=== PATIENT | male | born 1975 | race Hispanic/Latino ===

== ENCOUNTER 2020-10-23 16:13 | Emergency (ER) | payer SELFPAY ==
[2020-10-23 16:32] LABS: BASOPHILS % (AUTO) 0.5 % (0.0-5.0); EOSINOPHILS % (AUTO) 1.9 % (0.0-8.0); HEMATOCRIT 47.7 % (42-54); LYMPHOCYTES % (AUTO) 13.5 % (21.0-51.0); MEAN CORPUSCULAR HGB CONC 35.4 g/dL (32.0-36.0); MEAN CORPUSCULAR VOLUME 87.4 fL (79-99); MONOCYTES % (AUTO) 4.5 % (3.0-13.0); PLATELET COUNT (AUTO) 166 K/uL (130-400); RED BLOOD CELL COUNT(AUTO) 5.46 MIL/uL (4.50-6.20); RED CELL DISTRIBUTION WIDTH 13.3 % (11.0-15.5); WHITE BLOOD COUNT (AUTO) 8.7 K/uL (4.8-10.8)
[2020-10-23 16:48] LABS: APPEARANCE,URINE Clear (CLEAR); BILIRUBIN,URINE Negative (NEGATIVE); COLOR,URINE Yellow (YELLOW); GLUCOSE, URINE (UA) Negative (NEGATIVE); KETONES,URINE Trace mg/dL (NEGATIVE); LEUKOCYTE ESTERASE ,URINE Negative (NEGATIVE); NITRATE,URINE Negative (NEGATIVE); OCCULT BLOOD,URINE Negative (NEGATIVE); PH,URINE 7.5 (5.0-8.0); PROTEIN,URINE Negative (NEGATIVE)
[2020-10-23 16:49] LABS: ALBUMIN 3.1 g/dL (3.5-5.0); BILIRUBIN,TOTAL 0.4 mg/dL (0.2-1.0); POTASSIUM 3.9 mmol/L (3.5-5.1)
[2020-10-23] MEDS ORDERED: LORAZEPAM 2 MG/ML 1 ML VIAL ONE (16:55)
[2020-10-23] MEDS ORDERED: FAMOTIDINE 20MG VIAL IV ONE (16:55)
[2020-10-23] MEDS ORDERED: MAGNESIUM HYDROXIDE 30 ML/UDCUP ONE (16:56)
[2020-10-23] MEDS ORDERED: LIDOCAINE HCL 2% VISCOUS 15 ML UDCUP ONE (16:56)
== END 2020-10-23 18:14 | disposition home or self-care (01) ==
LOC: EDH 16:13
DX: K29.70 Gastritis, unspecified, without bleeding (principal); K80.20 Calculus of gallbladder without cholecystitis without obstruction
CPT/HCPCS: 36415; 76705; 80053; 81003; 82150; 83690; 85025; 93005; 96374; 96375; 99285; J2060; J3490

== ENCOUNTER 2022-03-06 00:36 | Inpatient (IN) | payer OTHER ==
[~2022-03-06] VITALS: Ht 177.8 cm; Wt 81.6 kg
[2022-03-06 00:56] LABS: BASOPHILS % (AUTO) 0.6 % (0.0-5.0); HEMATOCRIT 44.6 % (42-54); MEAN CORPUSCULAR HEMOGLOBIN 31.2 pg (27.0-33.0); MEAN CORPUSCULAR HGB CONC 35.2 g/dL (32.0-36.0); MEAN CORPUSCULAR VOLUME 88.5 fL (79-99); MONOCYTES % (AUTO) 7.4 % (3.0-13.0); NEUTROPHILS % (AUTO) 54.5 % (40.0-77.0); PLATELET COUNT (AUTO) 250 K/uL (130-400); RED BLOOD CELL COUNT(AUTO) 5.04 MIL/uL (4.50-6.20); RED CELL DISTRIBUTION WIDTH 12.6 % (11.0-15.5); WHITE BLOOD COUNT (AUTO) 8.1 K/uL (4.8-10.8)
[2022-03-06 01:04] LABS: CREATININE 0.9 mg/dL (0.5-1.5); POTASSIUM 3.8 mmol/L (3.5-5.1)
[2022-03-06 01:08] LABS: ALBUMIN 3.2 g/dL (3.5-5.0); TOTAL PROTEIN, SERUM 6.2 g/dL (6.0-8.3)
[2022-03-06 01:44] LABS: APPEARANCE,URINE CLEAR (CLEAR); BILIRUBIN,URINE NEGATIVE (NEGATIVE); COLOR,URINE YELLOW (YELLOW); GLUCOSE, URINE (UA) NEGATIVE (NEGATIVE); KETONES,URINE 5 mg/dL (NEGATIVE); LEUKOCYTE ESTERASE ,URINE NEGATIVE (NEGATIVE); NITRATE,URINE NEGATIVE (NEGATIVE); OCCULT BLOOD,URINE NEGATIVE (NEGATIVE); PROTEIN,URINE NEGATIVE (NEGATIVE); UROBILINOGEN,URINE 0.2 mg/dL (0.2-1.0)
[2022-03-06] MEDS ORDERED: ONDANSETRON 4MG INJ ONE (01:48)
[2022-03-06] MEDS ORDERED: KETOROLAC 30MG VIAL (30MG/ML) ONE (01:48)
[2022-03-06] MEDS ORDERED: 0.9%NACL 1000ML 1,000 ML IV ONE ×2 (01:48→02:00)
[2022-03-06] MEDS ORDERED: KETOROLAC 30MG VIAL (30MG/ML) IVP ONE (02:00)
[2022-03-06] MEDS ORDERED: ONDANSETRON 4MG INJ IVP ONE (02:00)
[2022-03-06] MEDS ORDERED: MORPHINE 4 MG SYG IVP ONE (03:30)
[2022-03-06] MEDS ORDERED: ZOSYN 3.375GM +NS 50ML IV ONE (03:30)
[2022-03-06] MEDS: ZOSYN 3.375GM+NS 50ML 50 ML IV SCH ×3 (04:55→20:14)
[2022-03-06] MEDS: 0.9%NACL 1000ML 1,000 ML IV SCH ×2 (04:55→15:08)
[2022-03-06] MEDS ORDERED: ONDANSETRON 4MG INJ IV PRN (05:00)
[2022-03-06] MEDS ORDERED: ACETAMINOPHEN 325 MG TAB PO PRN ×2 (05:00)
[2022-03-06 07:44] LABS: INR 0.93 (0.85-1.15); PROTHROMBIN TIME 9.6 SEC (9.6-11.6)
[2022-03-06 07:45] LABS: PARTIAL THROMBOPLASTIN TIME 24.5 SEC (26.3-35.5)
[2022-03-06] MEDS: MORPHINE 2 MG SYG IV PRN ×2 (10:11→21:21)
[2022-03-06] MEDS ORDERED: IOHEXOL 350 MG/ML 100ML INFUS..BTL IV ONE ×2 (15:46→18:00)
[2022-03-06] MEDS ORDERED: DIATR MEGLU/DIATRIZOATE SODIUM 30 ML BOTTLE ONE (15:46)
[2022-03-06] MEDS: NICOTINE 14 MG/ 24 HR PATCH TD SCH (20:34)
[2022-03-06 23:49] VITALS: BP 117/72
[2022-03-07] VITALS (25 sets, daily range): BP systolic 98–132; BP diastolic 4–79
[2022-03-07] MEDS: 0.9%NACL 1000ML 1,000 ML IV SCH ×2 (01:00→20:21)
[2022-03-07] MEDS: MORPHINE 2 MG SYG IV PRN ×2 (01:06→20:22)
[2022-03-07] MEDS: ZOSYN 3.375GM+NS 50ML 50 ML IV SCH ×3 (05:00→20:21)
[2022-03-07] MEDS: HYDROMORPHONE 1 MG INJ IVP PRN (05:30)
[2022-03-07 05:39] LABS: BASOPHILS % (AUTO) 0.5 % (0.0-5.0); EOSINOPHILS % (AUTO) 4.9 % (0.0-8.0); HEMATOCRIT 43.5 % (42-54); LYMPHOCYTES % (AUTO) 36.2 % (21.0-51.0); MEAN CORPUSCULAR HEMOGLOBIN 30.9 pg (27.0-33.0); MEAN CORPUSCULAR HGB CONC 33.3 g/dL (32.0-36.0); MEAN CORPUSCULAR VOLUME 92.6 fL (79-99); MONOCYTES % (AUTO) 7.1 % (3.0-13.0); NEUTROPHILS % (AUTO) 50.9 % (40.0-77.0); PLATELET COUNT (AUTO) 223 K/uL (130-400); RED CELL DISTRIBUTION WIDTH 12.9 % (11.0-15.5); WHITE BLOOD COUNT (AUTO) 5.5 K/uL (4.8-10.8)
[2022-03-07 07:04] LABS: ERYTHROCYTE SEDIMENTATION RATE 2 MM/HR (0-15)
[2022-03-07] MEDS: NICOTINE 14 MG/ 24 HR PATCH TD SCH (10:53)
[2022-03-07] MEDS ORDERED: GLYCOPYRROLATE 1 MG/5 ML SYRINGE ONE (14:44)
[2022-03-07] MEDS ORDERED: PROPOFOL 10 MG/ML 20ML VIAL IV ONE (14:44)
[2022-03-07] MEDS ORDERED: ROCURONIUM BROMIDE 10MG/1ML 5ML VL ONE ×2 (14:44→15:18)
[2022-03-07] MEDS ORDERED: MIDAZOLAM HCL 1 MG/ML 2ML VIAL ONE (14:45)
[2022-03-07] MEDS ORDERED: FENTANYL CITRATE PF 50 MCG/1 ML 2ML VIAL ONE (14:45)
[2022-03-07] MEDS ORDERED: EPHEDRINE SULFATE 50 MG/ML AMPULE ONE (15:26)
[2022-03-07] MEDS ORDERED: LIDOCAINE HCL 1% 20 ML VIAL ONE (15:35)
[2022-03-07] MEDS ORDERED: FENTANYL CITRATE PF 50 MCG/1 ML 5ML AMP IV ONE (16:06)
[2022-03-07] MEDS ORDERED: ONDANSETRON 4MG INJ ONE (16:12)
[2022-03-07] MEDS ORDERED: NEOSTIGMINE 5MG/5ML SYR IV ONE (16:19)
[2022-03-07] MEDS: HYDROCODONE/ACETAMINOPHEN 5/325 MG TAB PO PRN (23:02)
[2022-03-08 01:22] VITALS: BP 116/68
[2022-03-08] MEDS: HYDROMORPHONE 1 MG INJ IVP PRN ×3 (02:17→12:06)
[2022-03-08 03:55] VITALS: BP 117/72
[2022-03-08] MEDS: ZOSYN 3.375GM+NS 50ML 50 ML IV SCH (04:31)
[2022-03-08] MEDS: 0.9%NACL 1000ML 1,000 ML IV SCH (04:33)
[2022-03-08] MEDS: HYDROCODONE/ACETAMINOPHEN 5/325 MG TAB PO PRN (06:42)
[2022-03-08 08:00] VITALS: BP 114/74
[2022-03-08] MEDS: NICOTINE 14 MG/ 24 HR PATCH TD SCH (10:14)
[2022-03-08 12:00] VITALS: BP 113/68
== END 2022-03-08 13:45 | disposition home or self-care (01) | DRG 418 ==
LOC: EDH 00:36 → EDHIP 00:37 → 3BH 23:23
PROVIDERS: ADMIT Hospitalist; ATTEND Hospitalist
PROC: 8E0W4CZ Robotic Assisted Procedure of Trunk Region, Percutaneous Endoscopic Approach (ICD-10-PCS; 2022-03-07)
PROC: 0FT44ZZ Resection of Gallbladder, Percutaneous Endoscopic Approach (ICD-10-PCS; principal; 2022-03-07 14:43)
DX: K80.62 Calculus of gallbladder and bile duct with acute cholecystitis without obstruction (principal); E44.0 Moderate protein-calorie malnutrition; Z20.822 Contact with and (suspected) exposure to COVID-19; F17.200 Nicotine dependence, unspecified, uncomplicated; K82.8 Other specified diseases of gallbladder; Z90.49 Acquired absence of other specified parts of digestive tract; Z68.25 Body mass index [BMI] 25.0-25.9, adult
CPT/HCPCS: 36415; 74177; 76705; 80053; 81003; 82948; 83690; 85025; 85610; 85651; 85730; 87635; G0378; J1170; J1885; J2250; J2270; J2405; J2543; J2704; J2710; J3010; J3490; J7030; Q9963; Q9967

== ENCOUNTER 2022-10-17 10:58 | Emergency (ER) | payer OTHER ==
[~2022-10-17] VITALS: Ht 177.8 cm; Wt 78.9 kg
[2022-10-17] MEDS ORDERED: LORAZEPAM 1 MG TABLET PO ONE (11:30)
[2022-10-17] MEDS ORDERED: KETOROLAC 30MG VIAL (30MG/ML) IM ONE (11:30)
[2022-10-17] MEDS ORDERED: NAPR500T6 PO (12:45)
[2022-10-17] MEDS ORDERED: CYCL10TA16 PO (12:45)
[2022-10-17 12:46] VITALS: BP 118/61
== END 2022-10-17 12:51 | disposition home or self-care (01) ==
LOC: EDH 10:58
DX: M62.838 Other muscle spasm (principal); Z79.899 Other long term (current) drug therapy; Z90.49 Acquired absence of other specified parts of digestive tract
CPT/HCPCS: 99283; 96372; J1885

== ENCOUNTER 2022-10-20 07:44 | Emergency (ER) | payer OTHER ==
[~2022-10-20] VITALS: Ht 177.8 cm; Wt 79.4 kg
[~2022-10-20 07:44] MED LIST: CYCL10TA16 PO; NAPR500T6 PO
[2022-10-20 09:14] LABS: APPEARANCE,URINE CLEAR (CLEAR); BILIRUBIN,URINE NEGATIVE (NEGATIVE); COLOR,URINE YELLOW (YELLOW); GLUCOSE, URINE (UA) NEGATIVE (NEGATIVE); KETONES,URINE NEGATIVE (NEGATIVE); LEUKOCYTE ESTERASE ,URINE NEGATIVE Leu/uL (NEGATIVE); NITRATE,URINE NEGATIVE (NEGATIVE); OCCULT BLOOD,URINE NEGATIVE (NEGATIVE); PROTEIN,URINE NEGATIVE (NEGATIVE); UROBILINOGEN,URINE 0.2 mg/dL (0.2-1.0)
[2022-10-20] MEDS ORDERED: KETOROLAC 15MG/ML VIAL (15MG/ML) IM ONE (09:30)
[2022-10-20 10:30] VITALS: BP 114/72
== END 2022-10-20 11:00 | disposition home or self-care (01) ==
LOC: EDH 07:44
DX: M54.2 Cervicalgia (principal); M51.9 Unspecified thoracic, thoracolumbar and lumbosacral intervertebral disc disorder; F17.210 Nicotine dependence, cigarettes, uncomplicated; Z90.49 Acquired absence of other specified parts of digestive tract; Z79.899 Other long term (current) drug therapy; Z98.890 Other specified postprocedural states
CPT/HCPCS: 99285; 72125; 81003; 96372; J1885

== ENCOUNTER 2024-07-21 12:33 | Emergency (ER) | payer OTHER ==
[~2024-07-21] VITALS: Ht 177.8 cm; Wt 74.8 kg
[~2024-07-21 12:33] MED LIST changes: +NAPR-1506 PO; -NAPR500T6 PO
[2024-07-21 15:17] VITALS: BP 121/79; PULSE 77; RESP 18; TEMP 97.8; O2SAT 100
--- NOTE | 2024-07-21 15:38 | ERN ---
General Chief Complaint: Medical Clearance Stated Complaint: MEDICAL CLEARANCE Time Seen by MD: 13:25 Time Seen by Midlevel: 13:25 Source: patient History of Present Illness Initial Comments Patient is a 48-year-old male being brought in by PD for medical clearance. According to the patient he admitted to using crack cocaine 2 hours prior to arrival. Patient states he normally does crack cocaine and has no complaints at this time. Allergies: Coded Allergies: No Known Allergies (Unverified Allergy, Unknown, 03/06/22) Home Meds Active Scripts Cyclobenzaprine HCl (Flexeril) 10 Mg Tab, 10 MG PO TID PRN for MUSCLE SPASMS, #15 TAB Prov:FITTING,JOSE EDUCATION ASSOCIATE 10/17/22 Naproxen (Naproxen) 500 Mg Tablet.dr, 500 MG PO BIDPC, #15 TAB Prov:FITTING,JOSE EDUCATION ASSOCIATE 10/17/22 Past Medical History Past Medical History: No Pertinent History Past Surgical History: Other Surgical History Other: LEFT ANKLE Social History Social History: Smokers, Other ROS Dictation CONSTITUTIONAL: Negative except for HPI HEAD/FACE: Negative except for HPI EENT: Negative except for HPI RESPIRATORY: Negative except for HPI GASTROINTESTINAL/ABDOMINAL: Negative except for HPI GENITOURINARY: Negative except for HPI MUSCULOSKELETAL: Negative except for HPI INTEGUMENTARY: Negative except for HPI NEUROLOGICAL/PSYCH: Negative except for HPI HEMATOLOGIC/LYMPHATIC: Negative except for HPI All Systems Negative, Except as noted above. 13 point review of systems assessed and all negative except for above. Physical Exam Physical Exam Dictation Vital Signs reviewed General Appearance: Alert, oriented x 3, no acute distress, well developed, nourished. Head and Face: non-traumatic. Eyes: PERRL, pink conjunctivas, eyelid no trauma, anterior chamber with arcus senilis. Ears: Pinnas intact and no signs of trauma or erythema ear canals clear and no discharge TM no erythema Nose: No discharge, no bleeding. Oropharynx: Mouth normal, tongue pink, pharynx clear,no erythema, tonsils no exudates, no abscesses noted, mucous membrane moist Neck: Supple, non-tender, no thyromegaly, no masses, no JVD, no bruits Breast:Deferred Chest:No tenderness, no crepitus, no paradoxical movement, no retractions Lungs:Clear, well-ventilated, symmetric, no rales, no wheezing, no rhonchi, no stridor, good breath sounds bilaterally Heart: Regular rate, regular rhythm, no murmur, no gallops Vascular: no peripheral edema, Abdomen: Soft, positive bowel sounds, nondistended, no guarding, nontender, no rebound, no masses no hepatomegaly, no splenomegaly, no Marr's sign, no hernias. Rectal: Deferred Genital: Deferred Neurological: Normal speech, motor function intact, sensory function intact Musculoskeletal: Neck nontender, full range of motion, back nontender, full range of motion, Extremities: nontender, full range of motion Skin: Color pink, dry, no turgor, no rash, no lacerations, no abrasions, no contusions. Lymphatic: Deferred Results Laboratory and Microbiology Lab and Micro Result Laboratory Tests Test 07/21/24 15:58 White Blood Count 5.7 K/uL (4.8-10.8) Red Blood Count 4.79 MIL/uL (4.50-6.20) Hemoglobin 15.4 g/dL (14.0-18.0) Hematocrit 45.9 % (42-54) Mean Corpuscular Volume 95.8 fL (79-99) Mean Corpuscular Hemoglobin 32.2 pg (27.0-33.0) Mean Corpuscular Hemoglobin Concent 33.6 g/dL (32.0-36.0) Red Cell Distribution Width 12.2 % (11.0-15.5) Platelet Count 275 K/uL (130-400) Mean Platelet Volume 9.1 fL (7.5-10.5) Immature Granulocyte % (Auto) 0.4 % (0-1) Neutrophils (%) (Auto) 71.5 % (40.0-77.0) Lymphocytes (%) (Auto) 17.9 % (21.0-51.0) L Monocytes (%) (Auto) 8.6 % (3.0-13.0) Eosinophils (%) (Auto) 1.1 % (0.0-8.0) Basophils (%) (Auto) 0.5 % (0.0-5.0) Neutrophils # (Auto) 4.1 K/uL (1.8-7.7) Lymphocytes # (Auto) 1.0 K/uL (1.0-4.8) Monocytes # (Auto) 0.5 K/uL (0.1-1.0) Eosinophils # (Auto) 0.06 K/uL (0.00-0.70) Basophils # (Auto) 0.03 K/uL (0.00-0.20) Absolute Immature Granulocyte (auto 0.02 K/uL (0-1) Nucleated Red Blood Cells 0.0 % (0.0-0.19) Sodium Level 139 mmol/L (136-145) Potassium Level 4.0 mmol/L (3.5-5.1) Chloride Level 103 mmol/L (101-111) Carbon Dioxide Level 31 mmol/L (21-32) Blood Urea Nitrogen 11 mg/dL (7-18) Creatinine 0.9 mg/dL (0.5-1.3) Glomerular Filtration Rate Calc 106 mL/min (>90) Random Glucose 106 mg/dL (70-105) H Total Calcium 9.3 mg/dL (8.5-10.1) Total Creatine Kinase 200 U/L (21-232) Troponin I High Sensitivity 11 ng/L (4-75) Labs Reviewed?: Yes MDM MDM: Differential diagnosis: Medical clearance, wellness examination, dehydration, electrolyte abnormality There are no social concerns with this patient. Prescription drug management Prescriptions will include: None Medical management and examination interpretation discussions were had by me with other qualified healthcare professionals as indicated for the patient's care. ED Course Orders Procedure Category Date Status Time 12 Lead Ekg Tracing- EKG 07/21/24 Resulted Technical 15:35 Cbc With Differential LAB 07/21/24 Complete 15:37 Basic Metabolic Panel LAB 07/21/24 Complete 15:37 Troponin I High LAB 07/21/24 Complete Sensitivity 15:37 Creatine Kinase, Total LAB 07/21/24 Complete 15:37 Vital Signs Date Time Temp Pulse Resp B/P (MAP) Pulse Ox O2 Delivery O2 Flow Rate FiO2 07/21/24 15:17 97.9 77 18 121/79 100 Room Air* 0 21 07/21/24 12:55 97.0 77 20 107/70 98 Room Air 0 DX & DISP Disposition: Discharge Departure Impression: Primary Impression: Medical clearance for incarceration Condition: Stable Referrals: SELF,REFERRAL (PCP) Time of Disposition: 17:02 I have reviewed the case, and I agree with, Diagnosis and Plan I PERFORMED THE SUBSTANTIVE PORTION OF THE VISIT. I HAVE REVIEWED AND PERSONALLY MADE AND APPROVE THE MANAGEMENT PLAN THAT IS DOCUMENTED IN THE NOTE BY MYSELF OR THE CRISSY. I ACKNOWLEDGE FOR RESPONSIBILITY FOR THE PATIENT'S MANAGEMENT PLAN. YVETTE BAIN Jul 21, 2024 15:38
[2024-07-21 16:06] LABS: BASOPHILS # (AUTO) 0.03 K/uL (0.00-0.20); BASOPHILS % (AUTO) 0.5 % (0.0-5.0); EOSINOPHILS # (AUTO) 0.06 K/uL (0.00-0.70); EOSINOPHILS % (AUTO) 1.1 % (0.0-8.0); HEMATOCRIT 45.9 % (42-54); IMMATURE GRANULOCYTE ABSOLUTE 0.02 K/uL (0-1); LYMPHOCYTES % (AUTO) 17.9 % (21.0-51.0); MEAN CORPUSCULAR HEMOGLOBIN 32.2 pg (27.0-33.0); MEAN CORPUSCULAR HGB CONC 33.6 g/dL (32.0-36.0); MEAN CORPUSCULAR VOLUME 95.8 fL (79-99); MONOCYTES # (AUTO) 0.5 K/uL (0.1-1.0); MONOCYTES % (AUTO) 8.6 % (3.0-13.0); NEUTROPHILS # (AUTO) 4.1 K/uL (1.8-7.7); NEUTROPHILS % (AUTO) 71.5 % (40.0-77.0); PLATELET COUNT (AUTO) 275 K/uL (130-400); RED BLOOD CELL COUNT(AUTO) 4.79 MIL/uL (4.50-6.20); RED CELL DISTRIBUTION WIDTH 12.2 % (11.0-15.5); WHITE BLOOD COUNT (AUTO) 5.7 K/uL (4.8-10.8)
[2024-07-21 16:20] LABS: CREATININE 0.9 mg/dL (0.5-1.3)
--- NOTE | 2024-07-21 20:56 | EKG ---
[facility] Test Date: 2024-07-21 Test Time: 15:33:43 Pat Name: JE LANDERS Department: ED Room: Gender: M Student Accounts Manager: [id number] : 1975 Requested By: YVETTE BAIN Order Number: [id number] Reading MD: Lisa Schumacher Measurements Intervals [place] Rate: 64 P: 69 FL: 148 QRS: 252 QRSD: 95 T: 67 QT: 399 QTc: 412 Interpretive Statements Sinus rhythm LAD, consider left anterior fascicular block ST elevation suggests acute pericarditis Compared to ECG 10/23/2020 16:35:03 ST (T wave) deviation now present Incomplete right bundle-branch block no longer present Electronically Signed On 07-22-2024 17:09:36 ACCESS CLINICIAN by Lisa Schumacher Please click the below link to view image of tracing.
== END 2024-07-21 17:12 | disposition home or self-care (01) ==
LOC: EDH 12:33 → EEVIPCON 12:33 → EDH 17:12
DX: Z04.89 Encounter for examination and observation for other specified reasons (principal); F17.200 Nicotine dependence, unspecified, uncomplicated
CPT/HCPCS: 36415; 80048; 82550; 84484; 85025; 93005; 99284

== ENCOUNTER 2024-11-20 22:31 | Emergency (ER) | payer OTHER ==
[~2024-11-20] VITALS: Ht 177.8 cm; Wt 69.1 kg
--- NOTE | 2024-11-21 00:29 | ERN ---
ED Note History of Present Illness Stated Complaint: LEFT 4TH FINGER INJURY, SPITTING BLOOD Chief Complaint: Multiple Complaints Time Seen by MD: 22:49 Time Seen by Midlevel: 23:30 Dictation: Mr. Pérez is a 49-year-old gentleman with no reported chronic health issues who was transported via EMS to the emergency department this evening for evaluation of finger pain. He states he sustained a fall at approximately 9:30 p.m. and bulk fall with his left hand. He states he jammed his left index finger. There is deformity and swelling with pain. He denies additional injury. He has good color, warmth, movement, and sensation distal. Capillary refill is less than 2 seconds. Radial and ulnar pulses are palpable. Allergies: Coded Allergies: No Known Allergies (Unverified Allergy, Unknown, 03/06/22) Home Meds Active Scripts Ibuprofen (Ibuprofen) 600 Mg Tablet, 600 MG PO Q6H PRN for PAIN, #15 TAB 0 Refills Prov:TARAS ARAUZ OPEN HEARTH DOOR LINER 11/21/24 Cyclobenzaprine HCl (Flexeril) 10 Mg Tab, 10 MG PO TID PRN for MUSCLE SPASMS, #15 TAB Prov:FITTINGJOSE MILK INSPECTOR 10/17/22 Naproxen (Naproxen) 500 Mg Tablet.dr, 500 MG PO BIDPC, #15 TAB Prov:FITTINGJOSE MILK INSPECTOR 10/17/22 Past Medical History Past Medical History: No Pertinent History Surgical History: Cholecystectomy, Other Surgical History Other: LEFT ANKLE Social History: Smokers, Other RN Note Reviewed/Agreed w/PFSH: Yes Review of System Dictation REVIEW OF SYSTEMS: CONSTITUTIONAL: Patient denies fevers, chills, sweats and weight changes. EYES: Patient denies any visual symptoms. EARS, NOSE, AND THROAT: No difficulties with hearing. No symptoms of rhinitis or sore throat. CARDIOVASCULAR: Patient denies chest pains, palpitations, orthopnea and paroxysmal nocturnal dyspnea. RESPIRATORY: No dyspnea on exertion, no wheezing or cough. GI: No nausea, vomiting, diarrhea, constipation, abdominal pain, hematochezia or melena. : No urinary hesitancy or dribbling. No nocturia or urinary frequency. No abnormal urethral discharge. MUSCULOSKELETAL: Reports pain to left index finger with deformity and swelling NEUROLOGIC: No chronic headaches, no seizures. Patient denies numbness, tingling or weakness. PSYCHIATRIC: Patient denies problems with mood disturbance. No problems with anxiety. ENDOCRINE: No excessive urination or excessive thirst. DERMATOLOGIC: Patient denies any rashes or skin changes. Initial Vital Sign VS Vital Signs Date Time Temp Pulse Resp B/P (MAP) Pulse Ox O2 Delivery O2 Flow Rate FiO2 11/20/24 22:32 97.2 61 20 111/67 100 Room Air 11/21/24 00:00 0 21 Physical Exam Dictation Vital signs: Reviewed. Afebrile Constitutional: No acute distress. Non-toxic appearing. Head/Face: Normocephalic, atraumatic. Eyes: Periorbital areas with no swelling, redness, or edema. Lids and lashes are normal. Conjunctival injection is absent. Sclera anicteric. Pupils equal, round, reactive to light. ENT: Pinnas intact and no signs of trauma or erythema. Ear canals clear and no discharge. TMs no erythema. No nasal discharge or bleeding noted. Oropharynx with no exudate, redness, swelling, masses, exudates, or evidence of obstruction. Uvula midline. Mucous membranes moist. Neck: Trachea midline, no masses palpated, and no cervical lymphadenopathy. No swelling. Supple, full range of motion. Chest/Axilla: No tenderness, no crepitus, no paradoxical movement, no retractions. Cardiovascular: Regular rate, regular rhythm, no murmur, no gallops. Symmetric pulses. No peripheral edema. Respiratory: Respirations even and unlabored. Lung sounds clear; no wheezes, rales or rhonchi. Room air SpO2 99% Gastrointestinal: Inspection is normal. No distention is appreciated. Bowel sounds are normal. No mass or organomegaly . There is no tenderness. No rebound. No rigidity. No voluntary or involuntary guarding. No Marr's sign. Neurological: Normal speech, gross motor function intact, gross sensory function intact. No focal weakness/Paresthesia. Musculoskeletal/Extremities: Decreased range of motion to PIP left index with swelling; unable to straighten. He has good color, warmth, and sensation to finger tip. Capillary refill < 2 seconds. Integumentary: Intact. Skin is normal color, warm and dry. Cap refill less than 2 seconds. Results (Laboratory/Radiology) X-RAY Comment: X ray fingers of the left hand revealed dislocation left ring finger PIP joint as interpreted by myself ED Course ED Course Orders Procedure Category Date Status Time Finger(S) 2+Vws Lt RAD 11/20/24 Taken 22:39 Morphine 4mg Syg PHA 11/21/24 Complete (Morphine 4mg Syg) 00:30 Finger(S) 2+Vws Lt RAD 11/21/24 Logged 01:07 Hydromorphone 1 Mg PHA 11/21/24 Complete Inj (Dilaudid 1mg Inj 01:30 Saline Lock Iv CPOE 11/21/24 Transmitted 01:13 Fentanyl Citrate Pf PHA 11/21/24 Complete 0.05 Mg/Ml (Fentanyl 02:00 Current Medications Medications (Trade) Dose Ordered Sig/Edis Route PRN Reason Start Time Stop Time Status Last Admin Dose Admin Fentanyl Citrate (FENTanyl CITRate PF 50 MCG/ 1 ML 2ML VIAL) 50 mcg ONCE ONCE IVP 11/21/24 02:00 11/21/24 02:02 DC 11/21/24 02:10 Hydromorphone HCl (DiLAUDid 1MG INJ) 1 mg ONCE ONCE IVP 11/21/24 01:30 11/21/24 01:54 DC Morphine Sulfate (morPHINE 4MG SYG) 4 mg ONCE ONCE IM 11/21/24 00:30 11/21/24 00:31 DC 11/21/24 00:44 Vital Signs Date Time Temp Pulse Resp B/P (MAP) Pulse Ox O2 Delivery O2 Flow Rate FiO2 11/21/24 00:00 98.4 55 16 121/63 99 Room Air* 0 21 11/20/24 22:32 97.2 61 20 111/67 100 Room Air Vital signs stable; normotensive. Afebrile. Impressive swelling to left ring finger PIP joint. Digital block successful to left 4th finger. Attempted closed reduction. Some improvement achieved and finger was splinted/adjacent to middle finger. He continues to have good color, warmth, and senstation to fingertip/nail bed. Capillary refill < 2 seconds. Medical Decision Making MDM MDM: Differential diagnosis: Finger dislocation, finger fracture Rationale: Tests considered and ordered secondary to shared decision making include: X-ray Previous outside records reviewed: Old ER visits. Risk of complication and/or morbidity or mortality of patient management: None Medications-Per medication reconciliation Need for hospitalization: Patient does not meet criteria for hospitalization. Need for emergency major/minor surgery: No There are no social concerns with this patient. Prescription drug management ibuprofen Prescriptions will include symptomatic care Patient's prior external medical records from other ER visits were reviewed by me as indicated. Prior testing and results from previous visits were reviewed. Prior tests were taken into account with medical decision making and resource utilization, independent historian/historians were used to obtain complete medical history. I independently interpreted the test that were performed, results were reviewed by me and considered findings on radiology if ordered. Medical management and examination interpretation discussions were had by me with other qualified healthcare professionals as indicated for the patient's care. Procedure Procedure Dictation: Digital block left ring finger prior to closed reduction. Anesthesia used 1% lidocaine without epinephrine. Skin was prepped with Betadine. A 27 gauge n eedle was used to inject 1 mL of 1% lidocaine at the medial and lateral aspects of the base of the left index finger. Aspiration negative before injection to both sides. Patient tolerated procedure well and adequate anesthesia was achieved within 10 minutes. DX & DISP Disposition: Discharge Departure Impression: Primary Impression: Dislocation of finger, right, closed Condition: Stable Scripts Ibuprofen (Ibuprofen) 600 Mg Tablet 600 MG PO Q6H PRN for PAIN, #15 TAB 0 Refills Prov: TARAS ARAUZ NP 11/21/24 Additional Instructions: Rest, ice, elevation. Finger splint. Closely monitor color, warmth, and sensation to left ring finger tip. Capillary refill should remain < 2-3 seconds. You will need to follow up with orthopedic surgeon, Dr. Elton Gupta. May take Ibuprofen every 6 hours as needed for discomfort. Return to the Emergency Department for worsening of symptoms or concerns Referrals: SELF,REFERRAL (PCP) ELTON GUPTA MD Time of Disposition: 02:37 TARAS ARAUZ NP November 21, 2024 00:29
[2024-11-21] MEDS: morPHINE 4 MG SYG IM ONE (00:44)
[2024-11-21] MEDS ORDERED: hydroMORPHone 1 MG INJ IVP ONE (01:30)
[2024-11-21] MEDS ORDERED: IBUP-2070 PO (02:02)
[2024-11-21] MEDS: FENTanyl CITRate PF 50 MCG/1 ML 2ML VIAL IVP ONE (02:10)
--- NOTE | 2024-11-21 02:34 | NUR ---
FINGER SPLINT APPLIED TO LEFT RING FINGER PER COMPOUND FINISHER ORDERS, PT TOELRATED WELL, NEUROVASCULAR STATUS REMAINS INTACT, CAPILLARY REFILL LESS THAN 2 SECONDS
[2024-11-21 02:40] VITALS: BP 106/84; PULSE 63; RESP 16; TEMP 98.2; O2SAT 98
--- NOTE | 2024-11-21 08:54 | HMCIMG ---
LEFT FOURTH FINGER RADIOGRAPHS - 2 VIEWS INDICATION: Swelling deformity of the fourth digit COMPARISON: None FINDINGS/IMPRESSION: AP and lateral views. Volar subluxation of the fourth middle phalanx in relationship to the proximal phalanx, without fracture.
== END 2024-11-21 02:50 ==
LOC: EEVIPCON 22:31 → EDH 22:31
DX: S63.285A Dislocation of proximal interphalangeal joint of left ring finger, initial encounter (principal); W18.39XA Other fall on same level, initial encounter; F17.200 Nicotine dependence, unspecified, uncomplicated; Z90.49 Acquired absence of other specified parts of digestive tract; Y93.89 Activity, other specified; Y92.89 Other specified places as the place of occurrence of the external cause; Y99.8 Other external cause status
CPT/HCPCS: 99285; 26770; 73140; 96374; 96375; J3010; J2270

== ENCOUNTER 2025-03-08 09:58 | Emergency (ER) | payer OTHER ==
[~2025-03-08] VITALS: Ht 177.8 cm; Wt 71.0 kg
[~2025-03-08 09:58] MED LIST changes: +IBUP-1492 PO
[2025-03-08 10:00] VITALS: BP 96/60; PULSE 78; RESP 16; TEMP 98.5
--- NOTE | 2025-03-08 10:40 | ERN ---
General Chief Complaint: Lower Extremity Pain/Injury Stated Complaint: RT SCIAITCA PAIN Time Seen by MD: 10:14 Time Seen by Midlevel: 10:14 Source: patient History of Present Illness Initial Comments The patient is a 41-year-old male presenting to the emergency department for evaluation of right-sided hip pain that radiates down to the right leg. Denies any direct injury or trauma. Denies any other symptoms. Allergies: Coded Allergies: No Known Allergies (Unverified Allergy, Unknown, 03/06/22) Home Meds Active Scripts Ibuprofen (Ibuprofen) 600 Mg Tablet, 600 MG PO Q6H PRN for PAIN, #15 TAB 0 Refills Prov:TARAS ARAUZ SAFETY INSTRUCTION POLICE OFFICER 11/21/24 Cyclobenzaprine HCl (Flexeril) 10 Mg Tab, 10 MG PO TID PRN for MUSCLE SPASMS, #15 TAB Prov:FITTINGJOSE NITRATING ACID MIXER 10/17/22 Naproxen (Naproxen) 500 Mg Tablet.dr, 500 MG PO BIDPC, #15 TAB Prov:FITTINGJOSE NITRATING ACID MIXER 10/17/22 Past Medical History Past Medical History: No Pertinent History Past Surgical History: Cholecystectomy, Other Surgical History Other: LEFT ANKLE Social History Social History: Smokers, Other ROS Dictation CONSTITUTIONAL: Negative except for HPI HEAD/FACE: Negative except for HPI EENT: Negative except for HPI RESPIRATORY: Negative except for HPI GASTROINTESTINAL/ABDOMINAL: Negative except for HPI GENITOURINARY: Negative except for HPI MUSCULOSKELETAL: Negative except for HPI INTEGUMENTARY: Negative except for HPI NEUROLOGICAL/PSYCH: Negative except for HPI HEMATOLOGIC/LYMPHATIC: Negative except for HPI All Systems Negative, Except as noted above. 13 point review of systems assessed and all negative except for above. Physical Exam Physical Exam Dictation Vital Signs reviewed General Appearance: Alert, oriented x 3, no acute distress, well developed, nourished. Head and Face: non-traumatic. Eyes: PERRL, pink conjunctivas, eyelid no trauma, anterior chamber with arcus senilis. Ears: Pinnas intact and no signs of trauma or erythema ear canals clear and no discharge TM no erythema Nose: No discharge, no bleeding. Oropharynx: Mouth normal, tongue pink, pharynx clear,no erythema, tonsils no exudates, no abscesses noted, mucous membrane moist Neck: Supple, non-tender, no thyromegaly, no masses, no JVD, no bruits Breast:Deferred Chest:No tenderness, no crepitus, no paradoxical movement, no retractions Lungs:Clear, well-ventilated, symmetric, no rales, no wheezing, no rhonchi, no stridor, good breath sounds bilaterally Heart: Regular rate, regular rhythm, no murmur, no gallops Vascular: no peripheral edema, Abdomen: Soft, positive bowel sounds, nondistended, no guarding, nontender, no rebound, no masses no hepatomegaly, no splenomegaly, no Marr's sign, no hernias. Rectal: Deferred Genital: Deferred Neurological: Normal speech, motor function intact, sensory function intact Musculoskeletal: Neck nontender, full range of motion, back nontender, full range of motion, Extremities: nontender, full range of motion Skin: Color pink, dry, no turgor, no rash, no lacerations, no abrasions, no contusions. Lymphatic: Deferred MDM MDM: Differential diagnosis: Leg pain, sciatica, fracture, contusion There are no social concerns with this patient. Prescription drug management Prescriptions will include: Toradol Medical management and examination interpretation discussions were had by me with other qualified healthcare professionals as indicated for the patient's care. ED Course Orders Procedure Category Date Status Time Pelvis 1-2vws RAD 03/08/25 Taken 10:29 Morphine 2mg Syg PHA 03/08/25 Complete (Morphine 2mg Syg) 10:30 Ketorolac PHA 03/08/25 Complete Tromethamine 15mg/Ml 10:30 Current Medications Medications (Trade) Dose Ordered Sig/Edis Route PRN Reason Start Time Stop Time Status Last Admin Dose Admin Ketorolac Tromethamine (toRADol) 15 mg ONCE ONCE IM 03/08/25 10:30 03/08/25 10:33 DC 03/08/25 11:11 Morphine Sulfate (morPHINE 2MG SYG) 2 mg ONCE ONCE IM 03/08/25 10:30 03/08/25 10:33 DC 03/08/25 11:11 Vital Signs Date Time Temp Pulse Resp B/P (MAP) Pulse Ox O2 Delivery O2 Flow Rate FiO2 03/08/25 10:00 98.4 78 16 96/60 98 Room Air 0 DX & DISP Disposition: Discharge Departure Impression: Primary Impression: Right leg pain Condition: Stable Scripts Ketorolac Tromethamine (Ketorolac Tromethamine) 10 Mg Tablet 1 TAB PO TID for pain for 5 Days, #15 TAB 0 Refills Prov: YVETTE BAIN 03/08/25 Additional Instructions: Your hip x-ray shows no acute abnormality. You were given morphine in the emergency department. You were given a prescription for Toradol. Return to the ER if you develop any new or worsening symptoms Referrals: SELF,REFERRAL (PCP) Time of Disposition: 11:21 I have reviewed the case, and I agree with, Diagnosis and Plan I performed the substantive portion of the visit. I have reviewed and personally made and approve the management plan that is documented in the note by myself or the CRISSY. I acknowledge for responsibility for the patient's managem ent plan. YVETTE BAIN Mar 08, 2025 10:40
[2025-03-08] MEDS ORDERED: KETO10TA2 PO (11:22)
--- NOTE | 2025-03-08 11:33 | NUR ---
PT AMBULATING WITH OUT ASSISTANCE, ACCOMPANIED BY DONY JOHNSON, EXITED OUT THE DISCHARGE DOOR.
--- NOTE | 2025-03-08 11:44 | HMCIMG ---
EXAM: CR Pelvis, 1 View. CLINICAL HISTORY: right hip pain COMPARISON: None provided. FINDINGS: BONES: No acute fracture or aggressive appearing osseous lesion. JOINTS: No dislocation. The joint spaces are normal. SOFT TISSUES: The soft tissues are unremarkable. IMPRESSION: No acute osseous abnormality. /[place]
== END 2025-03-08 11:35 | disposition home or self-care (01) ==
LOC: EEVIPCON 09:58 → EDH 09:58
DX: M79.661 Pain in right lower leg (principal); F17.200 Nicotine dependence, unspecified, uncomplicated; Z90.49 Acquired absence of other specified parts of digestive tract
CPT/HCPCS: 99284; 72170; 96372 ×2; J1885; J2270

== ENCOUNTER 2025-06-26 00:40 | Emergency (ER) | payer OTHER ==
[~2025-06-26] VITALS: Ht 180.3 cm; Wt 79.6 kg
[~2025-06-26 00:40] MED LIST changes: +KETO10TA2 PO
--- NOTE | 2025-06-26 00:42 | NUR ---
DENIES ORAL CARIES
--- NOTE | 2025-06-26 00:53 | ERN ---
ED Note History of Present Illness Stated Complaint: LEFT FACE PAIN, LEFT NECK PAIN Chief Complaint: Other Problems Time Seen by MD: 00:43 Time Seen by Midlevel: 00:44 Dictation: 49-year-old male presents to the emergency department due to reported having a sore throat along with pain to the left lateral chest wall area. The patient states that he feels like he has a small lump along the lateral/left portion of the neck. As per the patient, the pain is reproducible with palpation and twisting of the torso. Currently, he states that both rate of to a 5/10. Upon initial evaluation, the patient presents in no acute respiratory distress. Allergies: Coded Allergies: No Known Allergies (Unverified Allergy, Unknown, 03/06/22) Emergency Care COMMERCIAL LOAN ADMINISTRATOR: None Home Meds Active Scripts Ketorolac Tromethamine (Ketorolac Tromethamine) 10 Mg Tablet, 1 TAB PO TID for pain for 5 Days, #15 TAB 0 Refills Prov:YVETTE BAIN PAC 03/08/25 Ibuprofen (Ibuprofen) 600 Mg Tablet, 600 MG PO Q6H PRN for PAIN, #15 TAB 0 Refills Prov:TARAS ARAUZ MATERIALS COORDINATOR 11/21/24 Cyclobenzaprine HCl (Flexeril) 10 Mg Tab, 10 MG PO TID PRN for MUSCLE SPASMS, #15 TAB Prov:JOSE SAUCEDO MATERIALS COORDINATOR 10/17/22 Naproxen (Naproxen) 500 Mg Tablet.dr, 500 MG PO BIDPC, #15 TAB Prov:JOSE SAUCEDO MATERIALS COORDINATOR 10/17/22 Past Medical History Past Medical History: No Pertinent History Surgical History: Cholecystectomy, Other Surgical History Other: LEFT ANKLE Social History: Smokers, Other Review of System Dictation ENT: Sore throat Cardiovascular: Chest wall pain Initial Vital Sign VS Vital Signs Date Time Temp Pulse Resp B/P (MAP) Pulse Ox O2 Delivery O2 Flow Rate FiO2 06/26/25 00:41 97.3 77 20 136/73 97 Room Air Physical Exam Dictation General: awake, alert, NAD Head/Face: Normocephalic, atraumatic Eyes: PERRL, EOMI ENT: Oral mucosa moist Neck: Trachea midline, supple, left anterior cervical lymphadenopathy Cardiovascular: RRR, no edema Respiratory: Symmetrical, non-labored Abdomen: Soft, non-tender, non-distended, no guarding. Skin: Warm, dry, good turgor, no rash MS/Extremity: Pulses equal, no cyanosis, neurovascular intact, FROM, mild tenderness that is 100% reproducible to the left lateral chest wall area Neuro: COAx4, GCS 15, steady gait, Psych: Normal behavior, mood, and affect normal Results (Laboratory/Radiology) X-RAY Comment: X-ray of the neck soft tissue and left ribcage series with no cortical anomalies as interpreted by me. ED Course ED Course Orders Procedure Category Date Status Time Metoprolol Tartrate PHA 06/26/25 Complete 50 Mg Tab (Lopressor 01:00 Ketorolac 60mg/2ml PHA 06/26/25 Complete (Toradol 60mg/2ml) 01:00 Ribs Uni Lt W Pa RAD 06/26/25 Taken Chest 3+Vws 00:49 Neck Soft Tissue RAD 06/26/25 Taken 00:49 Current Medications Medications (Trade) Dose Ordered Sig/Edis Route PRN Reason Start Time Stop Time Status Last Admin Dose Admin Ketorolac Tromethamine (toRADol 60MG/ 2ML) 60 mg ONCE ONCE IM 06/26/25 01:00 06/26/25 01:10 DC 06/26/25 01:12 Metoprolol Tartrate (loprESSOR) 50 mg ONCE ONCE PO 06/26/25 01:00 06/26/25 00:50 DC Vital Signs Date Time Temp Pulse Resp B/P (MAP) Pulse Ox O2 Delivery O2 Flow Rate FiO2 06/26/25 00:41 97.3 77 20 136/73 97 Room Air Medical Decision Making MDM MDM: Differential diagnosis: Cervical lymphadenopathy, chest wall strain, chest wall pain. Rationale: Tests considered and ordered secondary to shared decision making include: Previous outside records reviewed: Old ER visits. Risk of complication and/or morbidity or mortality of patient management: None Medications-Per medication reconciliation Need for hospitalization: Patient does not meet criteria for hospitalization. Need for emergency major/minor surgery: No There are no social concerns with this patient. Prescription drug management Prescriptions will include symptomatic care Patient's prior external medical records from other ER visits were reviewed by me as indicated. Prior testing and results from previous visits were reviewed. Prior tests were taken into account with medical decision making and resource utilization, independent historian/historians were used to obtain complete medical history. I independently interpreted the test that were performed, results were reviewed by me and considered findings on radiology if ordered. Medical management and examination interpretation discussions were had by me with other qualified healthcare professionals as indicated for the patient's care. DX & DISP Disposition: Discharge Departure Impression: Primary Impression: Cervical lymphadenopathy Additional Impression: Chest wall pain Condition: Stable Referrals: SELF,REFERRAL (PCP) Time of Disposition: 01:35 HORTENCIA WORRELL Jun 26, 2025 00:53
[2025-06-26 01:42] VITALS: BP 132/75; PULSE 80; RESP 18; TEMP 98; O2SAT 98
--- NOTE | 2025-06-26 02:16 | HMCIMG ---
EXAM: CR Soft Tissue Neck, 1 View. CLINICAL HISTORY: Pain COMPARISON: None provided. FINDINGS: SOFT TISSUES: Unremarkable. No retropharyngeal soft tissue swelling or gas. EPIGLOTTIS: No epiglottic thickening. BONES: No acute osseous abnormality. IMPRESSION: Soft tissue plain films of the neck are within normal limits. Grade I anterolisthesis of C4 over C5 vertebrae and C5 over C6 vertebrae. Moderate spondylosis changes at the C6-C7 level. Ligament nuchae calcification posterior to the C6 spinous process /[place]
--- NOTE | 2025-06-26 02:26 | HMCIMG ---
EXAM: CR left Rib, 5 Views. CLINICAL HISTORY: Pain COMPARISON: None provided. FINDINGS: LUNGS: The visualized lungs appear essentially clear. PLEURAL SPACES: No evidence of pneumothorax. No pleural effusion. BONES: No visible acute rib fracture. IMPRESSION: No visible acute rib fracture. No pneumothorax. /[place]
== END 2025-06-26 01:43 ==
LOC: EDH 00:40 → EEVIPCON 00:40 → EDH 01:43
DX: R59.0 Localized enlarged lymph nodes (principal); R07.89 Other chest pain; J02.9 Acute pharyngitis, unspecified; F17.200 Nicotine dependence, unspecified, uncomplicated; Z90.49 Acquired absence of other specified parts of digestive tract
CPT/HCPCS: 99284; 70360; 71101; 96372; J1885